=== PATIENT | male | born 1930 | race Caucasian/White ===

== ENCOUNTER 2016-08-25 09:09 | Outpatient (CLI) | payer MEDICARE, BC ==
[~2016-08-25] VITALS: Ht 188 cm; Wt 93.0 kg
[~2016-08-25 09:09] MED LIST: ASPIRIN CHEWABL81 MG PO; COREG 25MG TAB25 MG PO; GLUCOPHAGE 500500 MG PO; IRON325 M1 PO; KEFLEX500 MG PO; LANOXIN TAB0.125 MG PO; LASIX40 MG PO; LIPITOR TAB 1010 MG PO; LISINOPRIL5 MG PO; ONE DAILY WITH1 EACH PO; POTASSIUM CHLO20 ME2 PO; STOOL SOFTENER250 MG PO; SYNTHROID 25 M25 MCG PO
[2016-08-25 09:56] LABS: HEMOGLOBIN 12.8 gm/dl (14.0-17.5); RED BLOOD COUNT 4.04 M/UL (4.20-5.50); WHITE BLOOD COUNT 7.3 K/UL (4.5-11.0)
[2016-08-26] MEDS ORDERED: LEVAQUIN500 MG PO (09:54)
[2016-08-26] MEDS ORDERED: TYLENOL WITH C1 EACH PO (09:55)
== END 2016-08-26 11:48 | disposition home or self-care (01) ==
LOC: CATH 09:09 → PROG CARE 18:24 → CATH 08-26 11:48
PROVIDERS: Internal Medicine Cardiovascular Disease
DX: Z45.02 Encounter for adjustment and management of automatic implantable cardiac defibrillator (principal); I11.0 Hypertensive heart disease with heart failure; I50.22 Chronic systolic (congestive) heart failure; I48.2 Chronic atrial fibrillation; I44.2 Atrioventricular block, complete; I49.5 Sick sinus syndrome; I25.5 Ischemic cardiomyopathy; I27.2 Other secondary pulmonary hypertension; I47.2 Ventricular tachycardia; I42.0 Dilated cardiomyopathy; I25.2 Old myocardial infarction; I25.10 Atherosclerotic heart disease of native coronary artery without angina pectoris; E11.621 Type 2 diabetes mellitus with foot ulcer; L97.509 Non-pressure chronic ulcer of other part of unspecified foot with unspecified severity; Z95.1 Presence of aortocoronary bypass graft; Z79.82 Long term (current) use of aspirin; Z79.84 Long term (current) use of oral hypoglycemic drugs; Z79.899 Other long term (current) drug therapy; Z98.62 Peripheral vascular angioplasty status; R06.02 Shortness of breath; E78.5 Hyperlipidemia, unspecified; R60.9 Edema, unspecified; I25.118 Atherosclerotic heart disease of native coronary artery with other forms of angina pectoris; Z86.711 Personal history of pulmonary embolism; I73.9 Peripheral vascular disease, unspecified; I08.3 Combined rheumatic disorders of mitral, aortic and tricuspid valves
CPT/HCPCS: 33225; 33233; 33249; 36415; 71010; 80048; 82962; 85025; 93005; C1730; C1766; C1882; C1900; J1644; J2250; J3010; J3370; J7040; J7050; J7070; Q9965